=== PATIENT | female | born 1980 | race Caucasian/White ===

== ENCOUNTER 2018-03-10 15:14 | Emergency (ER) | payer OTHER ==
[~2018-03-10] VITALS: Ht 165.1 cm; Wt 99.8 kg
[~2018-03-10 15:14] MED LIST: HYDROCODON-ACE1 EAC7 PO; NAPROSYN500 MG; NAPROSYN500 MG PO; NOHOMEMEDICATIONS; NORCO 5-325 TA1 EACH PO; PENICILLIN VK500 MG PO
[2018-03-10] MEDS ORDERED: METFORMIN HCL500 MG PO (15:22)
[2018-03-10] MEDS ORDERED: NEURONTIN250 MG/5 M PO (15:22)
[2018-03-10] MEDS ORDERED: PENICILLIN VK250 MG PO (15:31)
[2018-03-10] MEDS ORDERED: NORCO 5-325 TA1 EAC1 PO (15:32)
[2018-03-10 15:39] VITALS: BP 151/98
== END 2018-03-10 15:40 | disposition home or self-care (01) ==
LOC: M.ERS 15:14
DX: K04.7 Periapical abscess without sinus (principal); Z90.49 Acquired absence of other specified parts of digestive tract; Z98.890 Other specified postprocedural states; Z88.5 Allergy status to narcotic agent

== ENCOUNTER 2019-06-07 12:12 | Emergency (ER) | payer BC ==
[~2019-06-07] VITALS: Ht 165.1 cm; Wt 104.3 kg
[~2019-06-07 12:12] MED LIST changes: +METFORMIN HCL500 MG PO; +NEURONTIN250 MG/5 M PO; +NORCO 5-325 TA1 EAC1 PO; +PENICILLIN VK250 MG PO
[2019-06-07 12:15] VITALS: BP 121/81
[2019-06-07] MEDS ORDERED: VENTOLIN HFA 1818 GM INH (12:59)
[2019-06-07] MEDS ORDERED: PREDNISONE 20 M20 M1 PO (12:59)
[2019-06-07] MEDS ORDERED: ZPAK PO (12:59)
== END 2019-06-07 13:09 | disposition home or self-care (01) ==
LOC: M.ERS 12:12
DX: J40 Bronchitis, not specified as acute or chronic (principal); F17.210 Nicotine dependence, cigarettes, uncomplicated; Z90.49 Acquired absence of other specified parts of digestive tract; Z98.890 Other specified postprocedural states; Z98.51 Tubal ligation status; Z88.6 Allergy status to analgesic agent

== ENCOUNTER 2019-06-09 11:45 | Emergency (ER) | payer BC ==
[~2019-06-09] VITALS: Ht 165.1 cm; Wt 104.3 kg
[~2019-06-09 11:45] MED LIST changes: +PREDNISONE 20 M20 M1 PO; +VENTOLIN HFA 1818 GM INH; +ZPAK PO
[2019-06-09 12:53] LABS: ABSOLUTE LYMPHOCYTES 1.9 thou/uL (0.8-5.3); ABSOLUTE MONOCYTES 0.4 thou/uL (0.0-1.2); ABSOLUTE NEUTROPHILS 10.3 thou/uL (1.6-8.1); BASOPHILS 0.2 %; CALCIUM 8.1 mg/dL (8.5-10.1); EOSINOPHILS 0.3 %; HEMATOCRIT 36.7 % (37.0-47.0); HEMOGLOBIN 12.3 gm/dL (12.0-15.0); LYMPHOCYTES 15.3 %; MCH 28.1 pg (26.0-34.0); MCHC 33.6 g/dL (28.0-37.0); MCV 83.5 fL (80.0-100.0); MONOCYTES 3.3 %; MPV 7.9 fl. (7.2-11.1); NUCLEATED RBCS 0 /100WBC; PLATELET COUNT* 272 thou/uL (150-400); POLYS 80.9 %; POTASSIUM 3.8 mmol/L (3.5-5.1); RBC 4.39 mil/uL (4.20-5.00); RDW-CV 14.5 % (10.5-14.5); WBC 12.7 thou/uL (4.0-11.0)
[2019-06-09 12:58] LABS: TOTAL BILIRUBIN 0.1 mg/dL (<0.1-1.0); TOTAL PROTEIN 7.7 g/dL (6.4-8.2)
[2019-06-09 13:20] LABS: INFLUENZA A ANTIGEN Negative (Negative); INFLUENZA B ANTIGEN Negative (Negative)
[2019-06-09 14:39] LABS: URINE BILIRUBIN NEGATIVE (Negative); URINE BLOOD NEGATIVE (Negative); URINE CLARITY CLEAR; URINE COLOR YELLOW; URINE GLUCOSE-RANDOM NEGATIVE (Negative); URINE KETONES NEGATIVE (Negative); URINE LEUKOCYTES NEGATIVE (Negative); URINE NITRITE POSITIVE (Negative); URINE PROTEIN 1+ (Negative); URINE SPECIFIC GRAVITY 1.015 (1.005-1.030); URINE UROBILINOGEN 0.2 E.U./dl (0.2-1.0)
[2019-06-09 14:41] LABS: CASTS None Seen /LPF (None Seen); CRYSTALS None Seen /LPF (None Seen); SQUAMOUS 0-3 Few /LPF (0-3); URINE RBC 0-2 Rare /HPF (0-2); URINE WBC 0-5 Rare /HPF (0-5)
[2019-06-09] MEDS ORDERED: TESSALON PERLE100 M1 PO (16:17)
[2019-06-09 16:22] VITALS: BP 146/92
--- NOTE | 2019-06-11 11:44 | EKG ---
[place] [address] ELECTROCARDIOGRAM REPORT Name: EVELIANIELSDENISE CRISTOBAL Room: [facility]#: [id number] Admission: 06/09/19 Attend Phys: Discharge: 06/09/19 Date of : 80 Date of Service: 06/09/19 1239 Report #: [id number] THIS REPORT FOR: //name// [facility] ED Test Date: 2019-06-09 Test Time: 12:39:22 Pat Name: NIELS ALTAMIRANO Department: Room: Gender: Doorkeeper: MINH : 1980 Requested By: Mima Espinal Order Number: [id number] MD: Ji Zheng Measurements Intervals [place] Rate: 103 P: 28 VT: 156 QRS: -1 QRSD: 89 T: 38 QT: 327 QTc: 428 Interpretive Statements Sinus tachycardia Low voltage, precordial leads LVH by voltage No previous ECG available for comparison Electronically Signed On 06-11-2019 11:42:49 CDT by Ji Zheng [email or web address] <ELECTRONICALLY SIGNED> By: Ji Zheng MD, [facility] 06/11/19 1142 1239 1239 Ji Zheng MD, [facility] /EPI
== END 2019-06-09 16:23 | disposition home or self-care (01) ==
LOC: M.ERS 11:45
PROVIDERS: Physician Assistant
DX: J18.9 Pneumonia, unspecified organism (principal); R11.10 Vomiting, unspecified; E66.01 Morbid (severe) obesity due to excess calories; Z68.38 Body mass index [BMI] 38.0-38.9, adult; Z90.49 Acquired absence of other specified parts of digestive tract; Z98.890 Other specified postprocedural states; Z98.51 Tubal ligation status; Z88.6 Allergy status to analgesic agent